=== PATIENT | female | born 1980 | race Caucasian/White ===

== ENCOUNTER 2017-10-12 00:47 | Emergency (ER) | payer BC ==
[~2017-10-12] VITALS: Ht 157.5 cm; Wt 65.8 kg
[2017-10-12 00:53] VITALS: Ht 157.5 cm; Wt 65.8 kg
[2017-10-12 03:25] VITALS: BP 104/47
== END 2017-10-12 03:25 | disposition home or self-care (01) ==
LOC: ED 00:47
DX: F10.129 Alcohol abuse with intoxication, unspecified (principal)
CPT/HCPCS: 82962